=== PATIENT | male | born 1965 | race Caucasian/White ===

== ENCOUNTER → 2021-01-26 | Day surgery (SDC) | payer OTHER ==
[~2021-01-26] MED LIST: IBUPROFEN 600600 M1 PO; LISINOPRIL20 MG PO; NORCO5 PO; PEPCID20 MG PO
--- NOTE | ~2021-01-26 | OP ---
[facility] [address] [place] [address] OPERATIVE REPORT Name: MIHAELA CRANDALL Room: [facility].#: [id number] Admission: 01/26/21 Attend Phys: Tyree Saravia Discharge: Date of : 67 Report #: [id number] THIS REPORT FOR: cc: Keyur Fitzgerald Mohammad K. DO Patterson, Jonathan D. MD ~ DOC #: [id number] Tyree Saravia MD DATE OF SURGERY: 01/26/2021 PREOPERATIVE DIAGNOSIS: Symptomatic cholelithiasis. POSTOPERATIVE DIAGNOSIS: Symptomatic cholelithiasis. OPERATION: Laparoscopic cholecystectomy. SURGEON: Tyree Saravia MD. ANESTHESIA: General. ESTIMATED BLOOD LOSS: Minimal. SPECIMEN: Gallbladder. DESCRIPTION OF PROCEDURE: After informed consent was obtained, the patient was brought to the operating room and placed supine. SCDs were placed and working, preoperative antibiotics were administered, general anesthesia was induced. The abdomen was prepped and draped in the usual sterile fashion. A 10 mm incision was made below the umbilicus. Fascia was incised and a trocar was placed. Pneumoperitoneum was established. Three right upper quadrant 5 mm ports were placed. Gallbladder was grasped at the fundus and retracted cephalad. Infundibulum was grasped and retracted laterally. I dissected out the cystic duct and the cystic artery. I dissected out the cystic plate. The cystic duct and artery were clipped and ligated leaving 2 clips on the remaining duct and 1 on the remaining artery. Gallbladder was then taken off the liver bed with electrocautery. It was placed into an Endopouch and removed. The fascia was then closed with a ukwqac-pj-havmn 0 Vicryl. Skin was closed with 4-0 Monocryl. Incisions were dressed with Steri-Strips. COMPLICATIONS: None. DISPOSITION: The patient was taken to recovery in satisfactory condition. MD LENKA Radford/[place] [address] OPERATIVE REPORT Name: MIHAELA CRANDALL Room: [facility].#: [id number] Admission: 01/26/21 Attend Phys: Tyree Saravia Discharge: Date of : 67 Report #: [id number] By: [id number] Saravia MD /emma
[2021-01-26 08:00] LABS: HEMOGLOBIN 16.6 gm/dL (14.0-18.0); MCH 31.2 pg (26.0-34.0); MCHC 34.6 g/dL (28.0-37.0); MCV 90.1 fL (80.0-100.0); MPV 7.5 fl. (7.2-11.1); RBC 5.33 mil/uL (4.50-6.00); RDW-CV 13.5 % (10.5-14.5); WBC 8.1 thou/uL (4.0-11.0)
[2021-01-26 08:10] LABS: CALCIUM 9.2 mg/dL (8.5-10.1); CREATININE 0.9 mg/dL (0.6-1.3); POTASSIUM 3.8 mmol/L (3.5-5.1)
[2021-01-26 10:06] LABS: ALBUMIN 4.1 g/dL (3.4-5.0); TOTAL BILIRUBIN 0.6 mg/dL (<0.1-1.0); TOTAL PROTEIN 7.9 g/dL (6.4-8.2)
--- NOTE | 2021-01-26 11:11 | EKG ---
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
--- NOTE | 2021-01-30 11:07 | PATH ---
[address] [address] PATHOLOGY RPT PROCEDURE Name: CRANDALLMIHAELA OJEDA Guicho Room: [facility].#: [id number] Admission: 01/26/21 Date of : 67 Discharge: Report #: [id number] Path Case #: [id number] [facility] Accession Number: [id number] . 01 Material submitted: . gallbladder - GALLBLADDER AND CONTENTS . 01 Clinical history: . LAPAROSCOPIC CHOLECYSTECTOMY CALCULUS OF GALLBLADDER . 02 Diagnosis: Gallbladder and contents: - Chronic cholecystitis and cholelithiasis. (ALXEIA:brooklynn; 01/29/2021) [facility] 01/29/2021 1721 Local . 02 Electronically signed: . Gilbert Timmons MD, Pathologist NPI- [id number] . 01 Gross description: . 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 ([facility]; 01/28/2021) [facility] 01/28/2021 0936 Local . 02 Pathologist provided ICD-10: K80.10 . 02 CPT . 866269 Specimen Comment: A courtesy copy of this report has been sent to [phone] Specimen Comment: [phone] Specimen Comment: Report sent to / Performed at: [address] [place] [address] PATHOLOGY RPT PROCEDURE Name: MIHAELA CRANDALL Room: [facility]#: [id number] Admission: 01/26/21 Date of : 67 Discharge: Report #: [id number] Path Case #: [id number] [facility] [address], [place], [place] [id number] MD Josafat Sorenson MD Phone: [phone] Performed at: [facility] [address] [place], [place] [id number] MD Gilbert Timmons MD Phone: [phone]
== END | disposition home or self-care (01) ==
LOC: M.SUR 06:33
PROVIDERS: ATTEND Surgery
DX: K80.10 Calculus of gallbladder with chronic cholecystitis without obstruction (principal); R10.11 Right upper quadrant pain; Z79.899 Other long term (current) drug therapy; Z20.822 Contact with and (suspected) exposure to COVID-19